=== PATIENT | male | born 1950 | race Caucasian/White ===

== ENCOUNTER 2018-10-01 06:53 | Day surgery (SDC) | payer MEDICAID, MEDICARE ==
[2018-10-01] MEDS ORDERED: LIDOCAINE 2% MDV (20MG/ML) 20ML VIAL IV ONE (06:54)
[2018-10-01] MEDS ORDERED: PROPOFOL 10 MG/ML VIAL IV ONE (06:54)
--- NOTE | 2018-10-02 17:11 | Operative Note ---
DATE: 10/01/2018 OPERATION: 1. ESOPHAGOGASTRODUODENOSCOPY with biopsy. 2. COLONOSCOPY PREOPERATIVE DIAGNOSIS: Microcytic anemia and heme-positive stool. POSTOPERATIVE DIAGNOSES: 1. 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 2. Slightly prominent gastric folds. 3. Nonerosive gastritis. 4. Mild sigmoid diverticulosis. PROCEDURE: After informed consent was obtained from the patient, he was placed in the left lateral decubitus position in the endoscopy suite, sedated and monitored by the department of anesthesia. A well-lubricated [id number] gastroscope was placed in the posterior oropharynx under direct visualization and passed to the proximal esophagus. The endoscope was advanced through the proximal, mid, and distal esophagus. The GE junction was slightly irregular but no ulcers, erosions, strictures, varices, or mass lesions were seen. The gastric body demonstrated some mildly to moderately prominent proximal gastric folds. Insufflation did flatten these folds. There were some mild erythematous changes of the body and antrum. The duodenal bulb and sweep were unremarkable. No fresh or old blood was seen. J-turn views of the proximal stomach revealed some slightly prominent folds which flattened. No obvious fundal varices were seen. The endoscope was straightened. Gastric biopsies obtained. The endoscope was removed from the patient with no new findings noted. Digital rectal exam was unremarkable. A well-lubricated [id number] colonoscope was inserted into the rectum and advanced to the cecum. Preparation quality was good. The cecum, cecal bulb, ileocecal valve, and appendiceal orifice were inspected. There was a questionable small cecal AVM. No fresh or old blood was seen. This did not appear very prominent, however. The remainder of the ascending colon, transverse colon, descending colon, sigmoid colon, and rectum were inspected. There were some mild diverticular changes in the sigmoid colon. No fresh or old blood was seen. No obvious polyps were seen. No masses were noted. J-turn views of the anorectum revealed some hypertrophied anal papillae. The endoscope was straightened, the rectal ampulla deflated, and the endoscope was removed. RECOMMENDATIONS: I would suggest the patient undergo a capsule exam for further evaluation of his microcytic anemia. If that is unremarkable and no recent imaging has been performed, I would suggest a CT of the abdomen and pelvis be considered. As always, thank you for allowing me to participate in the healthcare of your patients. VARSHA
== END 2018-10-01 09:25 | disposition home or self-care (01) ==
LOC: HOP 06:53
PROVIDERS: ATTEND Internal Medicine Gastroenterology
DX: D50.9 Iron deficiency anemia, unspecified (principal); K92.1 Melena; K57.30 Diverticulosis of large intestine without perforation or abscess without bleeding; K62.89 Other specified diseases of anus and rectum; K52.81 Eosinophilic gastritis or gastroenteritis; I10 Essential (primary) hypertension; E11.9 Type 2 diabetes mellitus without complications; K21.9 Gastro-esophageal reflux disease without esophagitis; M19.90 Unspecified osteoarthritis, unspecified site